=== PATIENT | male | born 1960 | race Caucasian/White ===

== ENCOUNTER 2017-11-15 16:46 | Emergency (ER) | payer OTHER ==
[2017-11-15 17:15] VITALS: TEMP 97.7
--- NOTE | 2017-11-15 19:12 | EDPHY ---
H & P Smoking Status: Current every day smoker Time Seen by Provider: 11/15/17 19:09 HPI/ROS: CHIEF COMPLAINT: "I think I have a blocked salivary gland " HISTORY OF PRESENT ILLNESS: 57-year-old male complaining of right facial swelling for the past 2-3 days, looked in his mouth and noticed a stone like appearance at the right parotid gland introitus. No fever no chills no nausea no vomiting. No change in voice. PHYSICAL EXAM (Prior to examination, patient consented to physical exam, hands were washed and my usual and customary physical exam procedures followed) 1) GENERAL: Well-developed, well-nourished, alert and oriented. Appears to be in no acute distress. 2) HEAD: Normocephalic 3) HEENT: [sclera anicteric. There is a visible calculus at the introitus of the right parotid gland. There is mild facial asymmetry. Dentition is nontender. Floor of mouth soft with no evidence of Baldomero's angina. 4) LUNGS: Breathing comfortably. (Dionisio Becerril) Constitutional: Initial Vital Signs Temperature (C) 36.5 C 11/15/17 17:13 Heart Rate 59 L 11/15/17 17:13 Respiratory Rate 16 11/15/17 17:13 Blood Pressure 122/78 H 11/15/17 17:13 O2 Sat (%) 93 11/15/17 17:13 O2 Delivery Mode Room Air Allergies/Adverse Reactions: No Known Allergies Allergy (Unverified 11/15/17 17:12) Home Medications: Medication Instructions Recorded NK [No Known Home Meds] 11/15/17 MDM/Departure - [facility] ED Course/Re-evaluation: I think this patient's symptoms are more than likely secondary to parotid stone obstruction. Recommended sour candy, follow up with ENT in given this follow- up information. Doubt abscess. Given usual customary discharge precautions and instructions. Care of patient under supervision of secondary supervising physician Dr Borrero . (Dionisio Becerril) I did not see this patient while he was in the emergency department. However his care was discussed with the PA while the patient was in the department. I agree with treatment plan and management (Escobar Borrero) - Depart Disposition: Home, Routine, Self-Care Clinical Impression: Obstruction of parotid duct Condition: Good Instructions: Parotid Duct Obstruction (ED) Additional Instructions: Eat sour candy. Return to the ER if you developed worsening facial swelling or pain. Referrals: Tesfaye Mera MD [Medical Doctor] - 1-2 days without fail NONE *PRIMARY CARE P,. [Primary Care Provider] - As per Instructions
[2017-11-15 19:17] VITALS: BP 135/91; PULSE 60; RESP 18; O2SAT 92
== END 2017-11-15 19:17 | disposition home or self-care (01) ==
DX: K11.8 Other diseases of salivary glands (principal); F17.200 Nicotine dependence, unspecified, uncomplicated